=== PATIENT | male | born 1935 | race Caucasian/White ===

== ENCOUNTER 2016-06-19 03:29 | Emergency (ER) | payer MEDICARE ==
--- NOTE | 2016-06-19 03:58 | ERPHSYRPT ---
- History of Present Illness Time Seen by Provider: 06/19/16 03:45 Source: patient Exam Limitations: no limitations Patient Subjective Stated Complaint: FREQUENT FALLS, WITH FALL TONIGHT FROM STANDING POSITION - PT DOES NOT RECALL EVENT - MEDICS FOUND LOW BLOOD SUGAR ON SCENE - PT DENIES PAIN BUT DOES NOT RECALL THE EVENT Triage Nursing Assessment: LIFTED TO CART PER EMS PERSONNEL - RIGHT-SIDED WEAKNESS PER OLD STROKE, OTHERWISE MILD WEAKNESS NOTED PER FUNCTIONING EXTREMITIES. ALERT/ORIENTED X 3 - APPROPRIATE AFFECT. SKIN PWD - NO RASH - ARASIONS ON THE LEFT MEDIAL FOOT ET ECCHYMOSES ON THE RIGHT WRIST WITH SOME SWELLING. RESPS NON-LABORED Physician History: REPORTEDLY PT FELL TONIGHT AND HAD A LOW BLOOD GLUCOSE OF 41, EMS GAVE 1/2 AMP OF D-50 AND NOW IN ER B.S. IS 98. PT DENIES ANY PAIN ANYWHERE. PT ALSO DENIES SHORTNESS OF AIR, VOMITING, HEADACHE, NECK PAIN, BACK PAIN, NEW NUMBNESS OR WEAKNESS. Allergies/Adverse Reactions: No Known Drug Allergies Allergy (Unverified 06/19/16 03:32) Home Medications: Aspirin 325 mg PO DAILY 06/19/16 [History] Insulin Glargine,Hum.rec.anlog [Lantus Solostar] 50 unit SQ BID 06/19/16 [ History] Insulin Lispro [Humalog] 40 unit SQ TID 06/19/16 [History] Liraglutide [Victoza 3-Rancho] 1.8 mg SQ DAILY 06/19/16 [History] Losartan Potassium 100 mg PO DAILY 06/19/16 [History] Metoprolol Tartrate 25 mg [Lopressor 25MG Tab] 25 mg PO BID 06/19/16 [ History] Polyethylene Glycol [Polyox Wsr-301] 1 gm MC DAILY PRN 06/19/16 [History] Rosuvastatin Calcium [Crestor] 40 mg PO HS 06/19/16 [History] Sertraline HCl 50 mg [Zoloft 50 mg Tablet] 50 mg PO BID 06/19/16 [History] Solifenacin Succinate [Vesicare] 10 mg PO DAILY 06/19/16 [History] Tamsulosin HCl 0.4 mg [Flomax 0.4 MG] 0.4 mg PO BID 06/19/16 [History] Hx Tetanus, Diphtheria Vaccination/Date Given: No Hx Influenza Vaccination/Date Given: No Hx Pneumococcal Vaccination/Date Given: No Immunizations Up to Date: Yes - Review of Systems Constitutional: Other (LOW BLOOD GLUCOSE) Musculoskeletal: Fall All Other Systems: Reviewed and Negative - Past Medical History Pertinent Past Medical History: Yes Neurological History: Stroke Cardiac History: High Cholesterol, Hypertension, Other Endocrine Medical History: Diabetes Type II Musculoskeletal History: Arthritis GI Medical History: Gallbladder Disease History: No Pertinent History Psycho-Social History: No Pertinent History Male Reproductive Disorders: No Pertinent History - Past Surgical History Past Surgical History: Yes Cardiac: CABG Gastrointestinal: Cholecystectomy Genitourinary: No Pertinent History Musculoskeletal: No Pertinent History Male Surgical History: No Pertinent History - Social History Smoking Status: Never smoker Exposure to second hand smoke: No Drug Use: none Patient Lives Alone: No - Nursing Vital Signs Nursing Vital Signs: Initial Vital Signs Temperature 97.6 F Temperature Source Oral Pulse Rate 53 Respiratory Rate 14 Blood Pressure [] 111/57 Pain Intensity 0 - Mario Coma Score Best Eye Response (Mario): (4) open spontaneously Best Verbal Response (Catherine): (5) oriented Best Motor Response (Mario): (6) obeys commands Mario Total: 15 - Physical Exam General Appearance: alert Head Injury: no evidence of injury Eye Exam: PERRL/EOMI ENT Exam: airway nml, nml ext.inspection, hearing grossly normal Neck Exam: supple, trachea midline, full range of motion Respiratory/Chest Exam: normal breath sounds, No chest tenderness Cardiovascular Exam: normal heart sounds Gastrointestinal Exam: soft, normal bowel sounds, No tenderness Back Exam: normal inspection Extremity Exam: other (RIGHT HAND IS FISTED; LIMITED ROM OF THE RIGHT UPPER EXTREMITY) Peripheral Pulses: dorsalis-pedis (R): 2+, dorsalis-pedis (L): 2+ Neurologic Exam: alert, cooperative, other (NO TREMORS) Skin Exam: abrasion (1 CM DIAMETER AVULSION OF EPIDERMIS ON PLANTAR ASPECT OF 1ST MPJ OF THE LEFT FOOT; 1 CM DIAMETER VERY SUPERFICIAL ABRASION OF DORSAL ASPECT OF RIGHT WRIST WITH MINIMAL EDEMA OF THE RIGHT WRIST.) SpO2 Interpretation: normal SpO2: 96 Oxygen Delivery: Room Air - Course Nursing assessment & vital signs reviewed: Yes - Radiology Exams Left Foot X-ray Interpretation: Interpreted by me, No Fracture Right Wrist X-ray Interpretation: Interpreted by me, No Fracture Ordered Tests: Active Orders 24 hr Category Date Time Status ACCUCHECK [Accucheck] STAT Care 06/19/16 05:09 Active IV Insertion STAT Care 06/19/16 03:59 Active FOOT (MINIMUM 3 VIEWS) Stat Exams 06/19/16 03:58 Taken WRIST (MIN 3 VIEWS) Stat Exams 06/19/16 03:58 Taken BMP Stat Lab 06/19/16 04:14 Completed CBC W DIFF Stat Lab 06/19/16 04:14 Completed MAGNESIUM Stat Lab 06/19/16 04:14 Completed UA Stat Lab 06/19/16 05:30 Completed Medication Summary Generic Name Dose Route Start Last Admin Trade Name Freq PRN Reason Stop Dose Admin Magnesium Oxide 400 mg 06/19/16 10:00 06/19/16 06:00 Mag-Ox 400 PO 07/19/16 09:59 400 mg BID CHANCE Administration Discontinued Medications Generic Name Dose Route Start Last Admin Trade Name Freq PRN Reason Stop Dose Admin Sodium Chloride 1,000 mls @ 999 mls/hr 06/19/16 03:59 06/19/16 04:08 Sodium Chloride 0.9% 1000 Ml IV 06/19/16 04:59 999 mls/hr .Q1H1M STA Administration Sodium Chloride Confirm 06/19/16 04:03 Sodium Chloride 0.9% 1000 Ml Administered 06/19/16 04:04 Dose 1,000 mls @ ud .ROUTE .STK-MED ONE Potassium Chloride 10 meq 06/19/16 05:52 06/19/16 06:00 Klor Con 10 Meq PO 06/19/16 05:53 10 meq STAT ONE Administration Potassium Chloride Confirm 06/19/16 05:56 Klor Con 10 Meq Administered 06/19/16 05:57 Dose 10 meq PO .STK-MED ONE Lab/Rad Data: Laboratory Result Diagrams 06/19/16 04:14 06/19/16 04:14 Laboratory Results 06/19/16 06/19/16 06/19/16 Range/Units 05:30 04:14 04:14 WBC 8.5 (4.0-10.5) K/mm3 RBC 4.39 (4.1-5.6) M/mm3 Hgb 12.3 L (12.5-18.0) gm/dl Hct 38.3 L (42-50) % MCV 87.2 (78-100) fl MCH 28.0 (26-32) pg MCHC 32.1 (32-36) g/dl RDW 14.3 H (11.5-14.0) % Plt Count 164 (150-450) K/mm3 MPV 9.5 (6-9.5) fl Gran % 82.5 H (36.0-66.0) % Lymphocytes % 10.5 L (24.0-44.0) % Monocytes % 6.7 (0.0-12.0) % Eosinophils % 0.2 (0.00-5.0) % Basophils % 0.1 (0.0-0.4) % Basophils # 0.01 (0-0.4) Sodium 140 (136-145) mEq/L Potassium 3.4 L (3.5-5.1) mEq/L Chloride 105 (98-107) mEq/L Carbon Dioxide 26.7 (21-32) mEq/L Anion Gap 11.7 (5-15) MEQ/L BUN 15 (9-20) mg/dL Creatinine 0.91 (0.55-1.30) mg/dl Estimated GFR > 60 ML/MIN Glucose 81 (70-110) MG/DL Calcium 8.4 L (8.5-10.1) mg/dL Magnesium 1.7 L (1.8-2.4) mg/dL Ur Collection Type CLEAN CATCH Urine Color YELLOW (YELLOW) Urine Appearance CLEAR (CLEAR) Urine pH 5.5 (5-6) Ur Specific [place] 1.020 (1.005-1.025) Urine Protein NEGATIVE (Negative) Urine Glucose (UA) 100 (NEGATIVE) mg/dL Urine Ketones SMALL (NEGATIVE) Urine Nitrite NEGATIVE (NEGATIVE) Urine Bilirubin SMALL (NEGATIVE) Urine Urobilinogen 4 (0-1) mg/dL Urine WBC (Auto) NEGATIVE (NEGATIVE) Urine RBC (Auto) TRACE NON-HEM (0-5) Martell/ul Specimen Received [id number] - Departure Time of Disposition: 06:47 Departure Disposition: Home Clinical Impression: ABRASION TO THE LEFT FOOT, ABRASION TO RIGHT WRIST, HYPOGLYCEMIA, MILD HYPOKALEMIA, MILD HYPOMAGNESEMIA, DM, ARTHRITIS, HTN, HX CVA WITH RIGHT HEMIPARESIS Condition: Fair Critical Care Time: No Referrals: ROBERT CASTANON [Primary Care Provider] - Instructions: Prevent Falls, Hypoglycemia, Abrasion Additional Instructions: FOLLOW UP WITH PRIVATE DOCTOR TOMORROW. NEOSPORIN & BANDAGE TO LEFT FOOT ABRASION DAILY FOR THE NEXT 10 DAYS.
[2016-06-19] MEDS ORDERED: Sodium Chloride 0.9% 1000 ML 1,000 ML IV STA (03:59)
[2016-06-19] MEDS ORDERED: Sodium Chloride 0.9% 1000 ML 1,000 ML ONE (04:03)
[2016-06-19 04:19] LABS: BASOPHIL % 0.1 % (0.0-0.4); Eosinophil % 0.2 % (0.00-5.0); Granulocytes % 82.5 % (36.0-66.0); Lymphocytes % 10.5 % (24.0-44.0); Mean Cell Volume 87.2 fl (78-100); Mean Platelet Volume 9.5 fl (6-9.5); Monocytes % 6.7 % (0.0-12.0); Platelet Count 164 K/mm3 (150-450); Red Blood Count 4.39 M/mm3 (4.1-5.6); Red Cell Distribution Width 14.3 % (11.5-14.0); White Blood Count 8.5 K/mm3 (4.0-10.5)
[2016-06-19 04:34] LABS: ANION GAP 11.7 MEQ/L (5-15); BLOOD UREA NITROGEN 15 mg/dL (9-20); CHLORIDE 105 mEq/L (98-107); Carbon Dioxide 26.7 mEq/L (21-32); Glucose 81 MG/DL (70-110); MAGNESIUM 1.7 mg/dL (1.8-2.4); Potassium 3.4 mEq/L (3.5-5.1); SODIUM 140 mEq/L (136-145)
[2016-06-19 05:42] LABS: Collection Type CLEAN CATCH; Ph 5.5 (5-6)
[2016-06-19 05:43] LABS: COMPLETE URINE MICROSCOPIC? NO
[2016-06-19] MEDS ORDERED: Klor Con 10 MEQ PO ONE ×2 (05:52→05:56)
[2016-06-19] MEDS ORDERED: MAG-OX 400 ONE (05:56)
[2016-06-19] MEDS ORDERED: BACIGUENT PACKET TP ONE (06:55)
[2016-06-19] MEDS ORDERED: BACIGUENT PACKET ONE (06:56)
[2016-06-19 07:32] VITALS: BP 130/49; PULSE 59; O2SAT 97
--- NOTE | 2016-06-19 08:19 | XRAY ---
Indication: Pain following fall. Comparison: None 3 nonweightbearing views of the left foot demonstrates mild osteopenia, first MTP minimal degenerative changes, tiny plantar heel spur, and scattered vascular calcifications. No other bony, articular, or soft tissue abnormalities.
--- NOTE | 2016-06-19 08:21 | XRAY ---
Indication: Pain following fall. Comparison: None 3 views of the right wrist demonstrates osteopenia, old distal radial fracture, radiocarpal degenerative joint space narrowing, and mild first metacarpal multangular degenerative changes. No other bony, articular, or soft tissue abnormalities.
[2016-06-19] MEDS ORDERED: MAG-OX 400 PO SCH (10:00)
== END 2016-06-19 08:03 ==
LOC: ED 03:29
DX: S90.812A Abrasion, left foot, initial encounter (principal); S60.811A Abrasion of right wrist, initial encounter; E16.2 Hypoglycemia, unspecified; E87.6 Hypokalemia; E83.42 Hypomagnesemia; E11.9 Type 2 diabetes mellitus without complications; M19.90 Unspecified osteoarthritis, unspecified site; I10 Essential (primary) hypertension; I69.951 Hemiplegia and hemiparesis following unspecified cerebrovascular disease affecting right dominant side; Z79.84 Long term (current) use of oral hypoglycemic drugs; Z79.4 Long term (current) use of insulin; E78.00 Pure hypercholesterolemia, unspecified
CPT/HCPCS: 36000; 36415; 73110; 73630; 80048; 81002; 82962; 83735; 85025; 87631; 96360; 99284; A9270-GY

== ENCOUNTER 2019-02-22 13:59 | Emergency (ER) | payer MEDICARE ==
--- NOTE | 2019-02-22 14:35 | ERPHSYRPT ---
- History of Present Illness Time Seen by Provider: 02/22/19 14:10 Source: patient, EMS Exam Limitations: no limitations Patient Subjective Stated Complaint: Pt states "I woke up this morning and I started to have left lower back pain that goes down into my left hip, leg, and down to my left knee." Triage Nursing Assessment: Pt presented alert and oriented X 3, skin pwd. Pt able to move all extremeties, pain noted to left hip and leg. Physician History: 83 y/o white male presents with left lower back/buttock pain that radiates down back of leg. no acute injury. patient woke up with it and has worsened during the day. Timing/Duration: today Method of Injury: other (none) Quality: radiating, sharp Back Pain Location: lumbar spine, paraspinous muscles Back Pain Radiation: buttocks Severity of Pain-Max: moderate Severity of Pain-Current: moderate Modifying Factors: Improves With: movement (worsen) Associated Symptoms: lower back pain, muscle spasms Previous symptoms: no prior history Allergies/Adverse Reactions: No Known Drug Allergies Allergy (Verified 02/22/19 14:06) Home Medications: Aspirin 325 mg PO DAILY 06/19/16 [History] Insulin Glargine,Hum.rec.anlog [Lantus Solostar] 50 unit SQ BID 06/19/16 [ History] Insulin Lispro [Humalog] 40 unit SQ TID 06/19/16 [History] Liraglutide [Victoza 3-Rancho] 1.8 mg SQ DAILY 06/19/16 [History] Losartan Potassium 100 mg PO DAILY 06/19/16 [History] Metoprolol Tartrate 25 mg [Lopressor 25MG Tab] 25 mg PO BID 06/19/16 [ History] Polyethylene Glycol [Polyox Wsr-301] 1 gm MC DAILY PRN 06/19/16 [History] Rosuvastatin Calcium [Crestor] 40 mg PO HS 06/19/16 [History] Sertraline HCl 50 mg [Zoloft 50 mg Tablet] 50 mg PO BID 06/19/16 [History] Solifenacin Succinate [Vesicare] 10 mg PO DAILY 06/19/16 [History] Tamsulosin HCl 0.4 mg [Flomax 0.4 MG] 0.4 mg PO BID 06/19/16 [History] Hx Tetanus, Diphtheria Vaccination/Date Given: No Hx Influenza Vaccination/Date Given: Yes Hx Pneumococcal Vaccination/Date Given: No Immunizations Up to Date: Yes - Review of Systems Constitutional: No Symptoms Eyes: No Symptoms Ears, Nose, & Throat: No Symptoms Respiratory: No Symptoms Cardiac: No Symptoms Abdominal/Gastrointestinal: No Symptoms Genitourinary Symptoms: No Symptoms Musculoskeletal: Back Pain (left lower back/buttock) Skin: No Symptoms Neurological: No Symptoms Psychological: No Symptoms Endocrine: No Symptoms Hematologic/Lymphatic: No Symptoms Immunological/Allergic: No Symptoms All Other Systems: Reviewed and Negative - Past Medical History Pertinent Past Medical History: Yes Neurological History: Stroke Cardiac History: High Cholesterol, Hypertension, Other Endocrine Medical History: Diabetes Type II Musculoskeletal History: Arthritis GI Medical History: Gallbladder Disease History: No Pertinent History Psycho-Social History: No Pertinent History Male Reproductive Disorders: No Pertinent History - Past Surgical History Past Surgical History: Yes Cardiac: CABG Gastrointestinal: Cholecystectomy Genitourinary: No Pertinent History Musculoskeletal: No Pertinent History Male Surgical History: No Pertinent History - Social History Smoking Status: Former smoker Exposure to second hand smoke: No Drug Use: none Patient Lives Alone: No - Nursing Vital Signs Nursing Vital Signs: Initial Vital Signs Temperature 98.1 F 02/22/19 14:00 Pulse Rate 68 02/22/19 14:00 Respiratory Rate 18 02/22/19 14:00 Blood Pressure 156/61 02/22/19 14:00 O2 Sat by Pulse Oximetry 99 02/22/19 14:00 Pain Scale Pain Intensity [Left Hip] 9 Pain Intensity 6 - Physical Exam General Appearance: mild distress, alert, anxiety Eye Exam: PERRL/EOMI Ears, Nose, Throat Exam: normal ENT inspection Neck Exam: normal inspection, non-tender, supple, full range of motion Respiratory Exam: No chest tenderness Gastrointestinal Exam: No tenderness Rectal Exam: not done Back Exam: decreased range of motion, muscle spasm (left lower back and buttock) Extremity Exam: normal inspection, normal range of motion, pelvis stable Neurologic Exam: alert, oriented x 3, cooperative, 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 Skin Exam: normal color, warm, dry Lymphatic Exam: No adenopathy SpO2 Interpretation: normal SpO2: 99 O2 Delivery: Room Air - Course Nursing assessment & vital signs reviewed: Yes Ordered Tests: Medication Summary Discontinued Medications Generic Name Dose Route Start Last Admin Trade Name Freq PRN Reason Stop Dose Admin Cyclobenzaprine HCl 10 mg 02/22/19 14:40 02/22/19 14:45 Cyclobenzaprine 10 Mg PO 02/22/19 14:41 10 mg STAT ONE Administration Cyclobenzaprine HCl Confirm 02/22/19 14:43 Cyclobenzaprine 10 Mg Administered 02/22/19 14:44 Dose 10 mg .ROUTE .STK-MED ONE Hydromorphone HCl 1 mg 02/22/19 14:38 02/22/19 14:44 Hydromorphone 1 Mg/Ml Ampule IM 02/22/19 14:39 1 mg STAT ONE Administration Hydromorphone HCl Confirm 02/22/19 14:43 Hydromorphone 1 Mg/Ml Ampule Administered 02/22/19 14:44 Dose 1 mg .ROUTE .STK-MED ONE Methylprednisolone Sodium Succinate 125 mg 02/22/19 14:39 02/22/19 14:44 Solu-Medrol 125 Mg IM 02/22/19 14:40 125 mg STAT ONE Administration Methylprednisolone Sodium Succinate Confirm 02/22/19 14:43 Solu-Medrol 125 Mg Administered 02/22/19 14:44 Dose 125 mg .ROUTE .STK-MED ONE Ondansetron HCl 4 mg 02/22/19 14:38 02/22/19 14:45 Zofran Odt 4 Mg PO 02/22/19 14:39 4 mg STAT ONE Administration Ondansetron HCl Confirm 02/22/19 14:43 Zofran Odt 4 Mg Administered 02/22/19 14:44 Dose 4 mg .ROUTE .STK-MED ONE - Progress Progress: improved Counseled pt/family regarding: diagnosis, need for follow-up - Departure Departure Disposition: Home Clinical Impression: Back pain, Sciatica Condition: Stable Critical Care Time: No Referrals: NALLELY PARISI [Primary Care Provider] - Additional Instructions: take medications as prescribed. follow up with primary doctor for persistent symptoms Prescriptions: Hydrocodone/APAP 5-325 Tab^^^ [[place] 5-325 Tablet^^^] 1 tab PO Q12H PRN PRN #8 tablet MDD 2 PRN Reason: Pain Cyclobenzaprine HCl 10 mg [Cyclobenzaprine 10 MG] 10 mg PO BID #10 tablet Prednisone 10 mg [Deltasone 10 mg] 10 mg PO BID #8 tablet
[2019-02-22] MEDS ORDERED: ZOFRAN ODT 4 MG PO ONE (14:38)
[2019-02-22] MEDS ORDERED: Hydromorphone 1 mg/ml Ampule IM ONE (14:38)
[2019-02-22] MEDS ORDERED: solu-MEDROL 125 MG IM ONE (14:39)
[2019-02-22] MEDS ORDERED: Cyclobenzaprine 10 MG PO ONE (14:40)
[2019-02-22] MEDS ORDERED: solu-MEDROL 125 MG ONE (14:43)
[2019-02-22] MEDS ORDERED: Hydromorphone 1 mg/ml Ampule ONE (14:43)
[2019-02-22] MEDS ORDERED: ZOFRAN ODT 4 MG ONE (14:43)
[2019-02-22] MEDS ORDERED: Cyclobenzaprine 10 MG ONE (14:43)
[2019-02-22 15:47] VITALS: BP 142/70; PULSE 62; O2SAT 97
== END 2019-02-22 15:49 | disposition home or self-care (01) ==
LOC: ED 13:59
DX: M54.42 Lumbago with sciatica, left side (principal); R25.2 Cramp and spasm; Z79.899 Other long term (current) drug therapy; Z79.84 Long term (current) use of oral hypoglycemic drugs; Z79.4 Long term (current) use of insulin; E78.00 Pure hypercholesterolemia, unspecified; I10 Essential (primary) hypertension; E11.9 Type 2 diabetes mellitus without complications
CPT/HCPCS: 96372; 99284; J1170; J2930; Q0162; A9270-GY

== ENCOUNTER 2023-03-28 01:53 | Emergency (ER) | payer MEDICARE ==
--- NOTE | 2023-03-28 02:04 | ERPHSYRPT ---
- History of Present Illness Time Seen by Provider: 03/28/23 02:03 Source: patient Exam Limitations: no limitations Physician History: This is an 87-year-old white male patient who was brought to the emergency department by the operations and maintenance specialist/ambulance service from [facility]. Patient states in the last few days he has had intermittent right buttock to right knee posterior sciatica. He did not suffer any fall or trauma. In the last 24 hours the sharp, shooting pain is more constant. The pain is worse with movement and with lying flat. Patient has a history of prostate issues, hyperlipidemia, hypertension and insulin-dependent diabetes. Patient is merely wanting a steroid injection. Timing/Duration: day(s) (Present for the last few days), intermittent, worse Method of Injury: other (No injury) Quality: sharp, stabbing Back Pain Location: lumbar spine (Lumbar spinal level), paraspinous muscles (Right paraspinous muscles) Back Pain Radiation: buttocks (Right buttock posteriorly), upper legs (Posteriorly to the knee on the right side) Severity of Pain-Max: moderate Modifying Factors: Improves With: movement, other (Worsens with lying flat) Associated Symptoms: denies symptoms, lower back pain, No urinary incontinence, No loss of bowel control, No constipation, No numbness in legs/feet Previous symptoms: same symptoms as today (On the left side), no recent treatment Allergies/Adverse Reactions: No Known Drug Allergies Allergy (Verified 03/28/23 02:18) Home Medications: Aspirin 325 mg PO DAILY 06/19/16 [History] Insulin Glargine,Hum.rec.anlog [Lantus Solostar] 50 unit SQ BID 06/19/16 [History] Insulin Lispro [Humalog] 40 unit SQ TID 06/19/16 [History] Liraglutide [Victoza 3-Rancho] 1.8 mg SQ DAILY 06/19/16 [History] Losartan Potassium 100 mg PO DAILY 06/19/16 [History] Metoprolol Tartrate 25 mg [Lopressor 25MG Tab] 25 mg PO BID 06/19/16 [History] Polyethylene Glycol [Polyox Wsr-301] 1 gm MC DAILY PRN 06/19/16 [History] Rosuvastatin Calcium [Crestor] 40 mg PO HS 06/19/16 [History] Sertraline HCl 50 mg [Zoloft 50 mg Tablet] 50 mg PO BID 06/19/16 [History] Solifenacin Succinate [Vesicare] 10 mg PO DAILY 06/19/16 [History] Tamsulosin HCl 0.4 mg [Flomax 0.4 MG] 0.4 mg PO BID 06/19/16 [History] Hx Tetanus, Diphtheria Vaccination/Date Given: No Hx Influenza Vaccination/Date Given: Yes Hx Pneumococcal Vaccination/Date Given: No Travel Risk - International Travel Have you traveled outside of the country in past 3 weeks: No - Coronavirus Screening Are you exhibiting any of the following symptoms?: No Close contact with a COVID-19 positive Pt in past 14-21 Days: No - Review of Systems Constitutional: No Symptoms Eyes: No Symptoms Ears, Nose, & Throat: No Symptoms Respiratory: No Symptoms Cardiac: No Symptoms Abdominal/Gastrointestinal: No Symptoms Genitourinary Symptoms: No Symptoms, No Incontinence Musculoskeletal: Back Pain, No Fall, No Injury Neurological: No Symptoms Psychological: No Symptoms Endocrine: No Symptoms Hematologic/Lymphatic: No Symptoms Immunological/Allergic: No Symptoms All Other Systems: Reviewed and Negative - Past Medical History Pertinent Past Medical History: Yes Neurological History: Stroke Cardiac History: High Cholesterol, Hypertension, Other Endocrine Medical History: Diabetes Type II Musculoskeletal History: Arthritis GI Medical History: Gallbladder Disease History: No Pertinent History Psycho-Social History: No Pertinent History Male Reproductive Disorders: No Pertinent History - Past Surgical History Past Surgical History: Yes Cardiac: CABG Gastrointestinal: Cholecystectomy Genitourinary: No Pertinent History Musculoskeletal: No Pertinent History Male Surgical History: No Pertinent History - Social History Smoking Status: Former smoker Exposure to second hand smoke: No Drug Use: none Patient Lives Alone: No - Nursing Vital Signs Nursing Vital Signs: Initial Vital Signs Temperature 97.4 F 03/28/23 01:57 Pulse Rate 66 03/28/23 01:57 Respiratory Rate 16 03/28/23 01:57 Blood Pressure 153/58 03/28/23 01:57 O2 Sat by Pulse Oximetry 94 L 03/28/23 01:57 Pain Scale Pain Intensity [Right Back] 0 Pain Intensity 0 - Physical Exam General Appearance: no apparent distress, alert, anxiety, obese Eye Exam: PERRL/EOMI, eyes nml inspection Ears, Nose, Throat Exam: normal ENT inspection, moist mucous membranes Neck Exam: normal inspection, non-tender, supple, full range of motion Respiratory Exam: normal breath sounds, lungs clear, airway intact, No chest tenderness, No respiratory distress Cardiovascular Exam: regular rate/rhythm, normal heart sounds, normal peripheral pulses Gastrointestinal Exam: soft, normal bowel sounds, No tenderness Rectal Exam: not done Back Exam: normal inspection, decreased range of motion, muscle spasm (Right lumbar level tenderness), No vertebral tenderness Extremity Exam: normal inspection, limited range of motion Neurologic Exam: alert, oriented x 3, cooperative, 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, normal mood/affect Skin Exam: normal color, warm, dry Lymphatic Exam: No adenopathy SpO2 Interpretation: normal O2 Delivery: Room Air - Course Nursing assessment & vital signs reviewed: Yes Ordered Tests: Active Orders 24 hr Category Date Time Status ABDOMEN AND PELVIS W/0 CONTRAS [CT] Stat Exams 03/28/23 02:24 Ordered Medication Summary Discontinued Medications Generic Name Dose Route Start Last Admin Trade Name Freq PRN Reason Stop Dose Admin Methylprednisolone Sodium 0 mg 03/28/23 02:25 Succinate 125 mg/ Sterile IM 03/28/23 02:26 Water 2 ml STAT ONE Methylprednisolone Sodium Succinate Confirm 03/28/23 02:37 Methylprednis Sod Succ 125 Mg/2 Ml Vial Administered 03/28/23 02:38 Dose 125 mg .ROUTE .STK-MED ONE Orphenadrine Citrate 30 mg 03/28/23 02:25 Orphenadrine Citrate 60 Mg/2 Ml Vial IM 03/28/23 02:26 STAT ONE Orphenadrine Citrate Confirm 03/28/23 02:37 Orphenadrine Citrate 60 Mg/2 Ml Vial Administered 03/28/23 02:38 Dose 60 mg .ROUTE .STK-MED ONE Sterile Water Confirm 03/28/23 02:37 Water For Injection,Sterile 10 Ml Vial Administered 03/28/23 02:38 Dose 10 ml IJ .STK-MED ONE - Progress Progress: improved, pain not gone completely, re-examined Progress Note: 03/28/23 02:45 This patient's medical issue is 1 of low complexity. Level of complexity and the workup performed is based on review of the patient's past medical history, review of the patient's medication list, review of patient's drug allergy list, history of present illness and physical findings on examination. The workup in this patient included CT scan of the abdomen pelvis without contrast to evaluate both the lumbar spine and the aorta. Patient refuses the test. He states he cannot lie flat. He stated that even with the medication to help relieve his pain, he did not want to attempt the CAT scan of the abdomen pelvis without contrast. He will sign refusal of treatment. Counseled pt/family regarding: diagnosis, need for follow-up Medical Desision Making - Diagnostic Testing Diagnostic test were ordered, analyzed, and reviewed by me: No - Risk of complications The pt has a mod risk of morbidity or mortality based on: Need for prescription drug management - Departure Departure Disposition: Extended Care Facility Clinical Impression: Sciatica, right side Condition: Stable Critical Care Time: No Additional Instructions: Take your medication as prescribed. Monitor your blood sugar closely while taki ng the prednisone. Follow-up with your provider for further evaluation management Prescriptions: Cyclobenzaprine HCl 10 mg [Cyclobenzaprine 10 MG] 10 mg PO TID #10 tablet Prednisone 10 mg [Deltasone 10 mg] 10 mg PO TID #12 tablet
[2023-03-28 02:18] VITALS: RESP 16; TEMP 97.4
[2023-03-28] MEDS ORDERED: solu-MEDROL 125 MG, Sterile H2O 10 ml 2 ML IM ONE ×2 (02:25)
[2023-03-28] MEDS ORDERED: Norflex 60 MG/2 ML IM ONE (02:25)
[2023-03-28] MEDS ORDERED: solu-MEDROL ONE (02:37)
[2023-03-28] MEDS ORDERED: Norflex 60 MG/2 ML ONE (02:37)
[2023-03-28] MEDS ORDERED: Sterile H2O 10 ml IJ ONE (02:37)
[2023-03-28 04:32] VITALS: BP 142/74; PULSE 57; O2SAT 97
== END 2023-03-28 04:25 | disposition home or self-care (01) ==
LOC: ED 01:53
DX: M54.31 Sciatica, right side (principal); E78.5 Hyperlipidemia, unspecified; I10 Essential (primary) hypertension; E11.9 Type 2 diabetes mellitus without complications; Z79.52 Long term (current) use of systemic steroids; Z79.4 Long term (current) use of insulin; Z79.85 Long-term (current) use of injectable non-insulin antidiabetic drugs; Z79.899 Other long term (current) drug therapy
CPT/HCPCS: 96372; 99283; J2360; J2930

== ENCOUNTER 2023-08-22 17:11 | Observation (INO) | payer MEDICARE ==
[2023-08-22] MEDS ORDERED: Lasix 20 MG/2 ML ONE (19:09)
[2023-08-22 19:10] LABS: Hematocrit 36.5 % (42-50); Hemoglobin 11.9 g/dL (12.5-18.0); Mean Cell Volume 87.5 fL (78-100); Mean Corpuscular Hemoglobin 28.5 pg (26-32); Mean Corpuscular Hgb Concent. 32.6 g/dL (32-36); Mean Platelet Volume 9.1 fL (7.5-11.0); Platelet Count 159 x10^3/uL (150-450); Red Blood Count 4.17 x10^6/uL (4.1-5.6); Red Cell Distribution Width 13.6 % (11.5-14.0); White Blood Count 8.1 x10^3/uL (4.0-10.5)
[2023-08-22] MEDS: Lasix 20 MG/2 ML IV ONE (19:18)
[2023-08-22 19:24] LABS: ALBUMIN 3.7 g/dL (3.5-5.0); BILIRUBIN,TOTAL 0.9 mg/dL (0.2-1.3); Calcium 9.1 mg/dL (8.4-10.2); Creatinine 1 0.77 mg/dL (0.66-1.25); EST GLOMERULAR FILTRATION RATE 87.7 ML/MIN; Potassium 4.1 mmol/L (3.5-5.1); Total Protein 6.9 g/dL (6.3-8.2)
[2023-08-22] MEDS ORDERED: MORPHINE SULFATE 4 MG INJ ONE (19:24)
[2023-08-22] MEDS: MORPHINE SULFATE 4 MG INJ IV ONE (19:25)
[2023-08-22] MEDS ORDERED: D50W 50 ml Abboject IV ONE (19:39)
[2023-08-22] MEDS: D50W 50 ml Abboject IV ONE (19:39)
--- NOTE | 2023-08-22 22:21 | ERPHSYRPT ---
- History of Present Illness Time Seen by Provider: 08/22/23 20:45 Source: patient Exam Limitations: clinical condition Patient Subjective Stated Complaint: pt states swelling to his rt foot Triage Nursing Assessment: pt came into the er via ambulance; pt was transferred to cot per EMS staff; c/o swelling; 2+ pitting edema to BLE, greater in the RLE; BLE cool to the touch; weak pedal pulses lidia; skin pale, dry, warm; no respiratory distress present; vitals wnl patient is complaining of bilateral leg pain and his sciatica acting up Severity: mild Modifying Factors: Improves With: immobilization Associated Symptoms: denies symptoms Allergies/Adverse Reactions: No Known Drug Allergies Allergy (Verified 08/22/23 17:13) Home Medications: Metoprolol Tartrate 25 mg [Lopressor 25MG Tab] 25 mg PO BID 06/19/16 [History] Polyethylene Glycol [Polyox Wsr-301] 17 gm PO DAILY PRN 06/19/16 [History] Rosuvastatin Calcium [Crestor] 20 mg PO HS 06/19/16 [History] Sertraline HCl 50 mg [Zoloft 50 mg Tablet] 50 mg PO DAILY 06/19/16 [History] Acetaminophen 325 mg [Tylenol 325 mg] 650 mg PO Q6H PRN PRN 03/28/23 [History] Aspirin EC 81 mg [Ecotrin 81 mg] 81 mg PO DAILY 03/28/23 [History] Diclofenac Sodium [Diclofono] 2 gm TP QID 03/28/23 [History] Finasteride 5 mg [Proscar 5 MG] 5 mg PO DAILY 03/28/23 [History] Hydrocortisone 2.5% 30 gm [Anusol-Hc 2.5% Cream 30 gm] 1 gm TOP QID PRN 03/28/23 [History] Insulin Aspart [NovoLOG Insulin] 10 unit SQ AC 03/28/23 [History] Insulin Glargine [Lantus Insulin] 20 unit SQ DAILY 03/28/23 [History] Liraglutide [Victoza 2-Rancho] 1.8 mg SQ DAILY 03/28/23 [History] Prevagen 1 tab PO DAILY 03/28/23 [History] Tolterodine Tartrate [Tolterodine Tartrate ER] 2 mg PO BID 03/28/23 [History] Cholecalciferol (Vitamin D3) [Vitamin D] 1 tab PO DAILY 08/22/23 [History] Fluticasone Propionate [Flonase NASAL] 1 spray NS BID 08/22/23 [History] Loratadine 10 mg [Claritin 10 mg] 10 mg PO DAILY 08/22/23 [History] Hx Tetanus, Diphtheria Vaccination/Date Given: No Hx Influenza Vaccination/Date Given: Yes Hx Pneumococcal Vaccination/Date Given: No Immunizations Up to Date: No Travel Risk - International Travel Have you traveled outside of the country in past 3 weeks: No - Emerging Infectious Disease Are you exhibiting symptoms associated with any current EIDs: No - Review of Systems Eyes: No Symptoms Ears, Nose, & Throat: No Symptoms Respiratory: No Symptoms Cardiac: No Symptoms Abdominal/Gastrointestinal: No Symptoms Genitourinary Symptoms: No Symptoms Musculoskeletal: No Symptoms Skin: No Symptoms Neurological: No Symptoms Psychological: No Symptoms Endocrine: No Symptoms - Past Medical History Pertinent Past Medical History: Yes Neurological History: Dementia, Stroke ENT History: No Pertinent History Cardiac History: Congestive Heart Failure, High Cholesterol, Hypertension, Peripheral Vascular Disease, Other Respiratory History: No Pertinent History Endocrine Medical History: Diabetes Type II Musculoskeletal History: Arthritis GI Medical History: Gallbladder Disease History: No Pertinent History Psycho-Social History: No Pertinent History Male Reproductive Disorders: No Pertinent History - Past Surgical History Past Surgical History: Yes Cardiac: CABG Gastrointestinal: Cholecystectomy Genitourinary: No Pertinent History Musculoskeletal: No Pertinent History Male Surgical History: No Pertinent History Other Surgical History: 4 vessel cabg - Social History Smoking Status: Former smoker Exposure to second hand smoke: No Drug Use: none Patient Lives Alone: No - Social Determinants of Health Will the patient participate in the screening: Yes Do you worry about a steady place to live?: No Do you have any problems with any of the following?: No known problems In the past 12 months,have you had to go without utilities?: No Transportation Issues: No Has anyone in your support network made you feel unsafe?: No Have you or anyone in your house had to go without enough: No - Nursing Vital Signs Nursing Vital Signs: Initial Vital Signs Temperature 98.6 F 08/22/23 17:12 Pulse Rate 65 08/22/23 17:12 Respiratory Rate 18 08/22/23 17:12 Blood Pressure 123/54 08/22/23 17:12 O2 Sat by Pulse Oximetry 95 08/22/23 17:12 Pain Scale Pain Intensity 0 - Physical Exam General Appearance: no apparent distress Eye Exam: PERRL/EOMI Ears, Nose, Throat Exam: normal ENT inspection Neck Exam: normal inspection Respiratory Exam: crackles/rales Cardiovascular Exam: regular rate/rhythm Gastrointestinal/Abdomen Exam: other (ventral hernia noted with bowerl sounds) Extremity Exam: pedal edema (patient has bilateral pedal edema) Neurologic Exam: alert, oriented x 3 Skin Exam: normal color SpO2: 94 Ordered Tests: Active Orders 24 hr Category Date Time Status VENOUS BILATERAL EXTREMITY [US] Stat Exams 08/22/23 18:54 Taken CBC Stat Lab 08/22/23 19:05 Completed CMP Stat Lab 08/22/23 19:05 Completed POCT GLUCOSE Stat Lab 08/22/23 19:37 Completed POCT GLUCOSE Stat Lab 08/22/23 20:10 Completed POCT GLUCOSE Stat Lab 08/22/23 21:08 Completed Transfer Order Routine Transfer 08/22/23 Ordered Medication Summary Generic Name Dose Route Start Last Admin Trade Name Freq PRN Reason Stop Dose Admin Furosemide 20 mg 08/23/23 18:54 08/22/23 19:18 Furosemide 20 Mg/Vial IV 08/23/23 18:55 20 mg ONCE ONE Administration Discontinued Medications Generic Name Dose Route Start Last Admin Trade Name Freq PRN Reason Stop Dose Admin Dextrose 50 ml 08/22/23 19:38 08/22/23 19:39 Dextrose 50%-Water 50 Ml Abboject IV 08/22/23 19:39 50 ml STAT ONE Administration Dextrose Confirm 08/22/23 19:39 Dextrose 50%-Water 50 Ml Abboject Administered 08/22/23 19:40 Dose 50 ml IV .STK-MED ONE Furosemide Confirm 08/22/23 19:09 Furosemide 20 Mg/Vial Administered 08/22/23 19:10 Dose 20 mg .ROUTE .STK-MED ONE Morphine Sulfate 4 mg 08/22/23 19:23 08/22/23 19:25 Morphine Sulfate 4 Mg/Ml Injection IV 08/22/23 19:24 4 mg STAT ONE Administration Morphine Sulfate Confirm 08/22/23 19:24 Morphine Sulfate 4 Mg/Ml Injection Administered 08/22/23 19:25 Dose 4 mg .ROUTE .[facility]-MED ONE Lab/Rad Data: Laboratory Result Diagrams 08/22/23 19:05 08/22/23 19:05 Laboratory Results 08/22/23 08/22/23 08/22/23 Range/Units 21:08 20:10 19:37 WBC (4.0-10.5) x10^3/uL RBC (4.1-5.6) x10^6/uL Hgb (12.5-18.0) g/dL Hct (42-50) % MCV (78-100) fL MCH (26-32) pg MCHC (32-36) g/dL RDW (11.5-14.0) % Plt Count (150-450) x10^3/uL MPV (7.5-11.0) fL Sodium (135-145) mmol/L Potassium (3.5-5.1) mmol/L Chloride (98-107) mmol/L Carbon Dioxide (22-30) mmol/L Anion Gap (5-15) MEQ/L BUN (9-20) mg/dL Creatinine (0.66-1.25) mg/dL Estimated GFR ML/MIN Glucose (74-106) mg/dL POC Glucometer 76 114 H 41 L* (50 to 500) mg/dL Calcium (8.4-10.2) mg/dL Total Bilirubin (0.2-1.3) mg/dL AST (17-59) U/L ALT (0-50) U/L Alkaline Phosphatase (38-126) U/L Serum Total Protein (6.3-8.2) g/dL Albumin (3.5-5.0) g/dL 08/22/23 08/22/23 Range/Units 19:05 19:05 WBC 8.1 (4.0-10.5) x10^3/uL RBC 4.17 (4.1-5.6) x10^6/uL Hgb 11.9 L (12.5-18.0) g/dL Hct 36.5 L (42-50) % MCV 87.5 (78-100) fL MCH 28.5 (26-32) pg MCHC 32.6 (32-36) g/dL RDW 13.6 (11.5-14.0) % Plt Count 159 (150-450) x10^3/uL MPV 9.1 (7.5-11.0) fL Sodium 139 (135-145) mmol/L Potassium 4.1 (3.5-5.1) mmol/L Chloride 108 H (98-107) mmol/L Carbon Dioxide 25 (22-30) mmol/L Anion Gap 10.0 (5-15) MEQ/L BUN 24 H (9-20) mg/dL Creatinine 0.77 (0.66-1.25) mg/dL Estimated GFR 87.7 ML/MIN Glucose 37 L* (74-106) mg/dL POC Glucometer (50 to 500) mg/dL Calcium 9.1 (8.4-10.2) mg/dL Total Bilirubin 0.90 (0.2-1.3) mg/dL AST 39 (17-59) U/L ALT 19 (0-50) U/L Alkaline Phosphatase 75 (38-126) U/L Serum Total Protein 6.9 (6.3-8.2) g/dL Albumin 3.7 (3.5-5.0) g/dL - Progress Progress: improved Progress Note: patient was evaluated for his edema with a venous Doppler bilaterally which revealed no acute findings, his lab evaluation revealed a blood sugar of 37. Patient was given an amp of D50, he was then monitored sugar improved to 114. Then decreased to 74. At first he states that the care home gave him his medication, he then informed his niece that he has been given himself his own medication and not been monitoring his diet or the amount of medication that he has been giving himself. Was informed of the need for admission for further evaluation and treatment of his hyperglycemia. I spoke to the hospitalist Dr. Campuzano he was updated with patient's lab results and current venous Doppler results. He will admit the patient for observation 08/22/23 22:21 Discussed with : Other (manisha) Will see patient in: hospital (observation) Counseled pt/family regarding: lab results, need for follow-up Medical Desision Making - Discussion of managment Care discussed with:: hospitalist Reviewed:: Need for additional workup Agreed on:: decision to admit, place in obs - Departure Departure Disposition: Observation Clinical Impression: Sciatica, Hypoglycemia Condition: Stable Critical Care Time: Yes Critical Care Time(excluding separately billable procedures): Critical 30-74 mins Referrals: KELLEY DILLARD MD [Primary Care Provider] - Follow up/PCP as directed
--- NOTE | 2023-08-23 00:37 | PCM.HP ---
History of Present Illness - Chief Complaint Chief Complaint: hypoglycemia Date: 08/22/23 History of Present Illness: Mr. RICH is a 87 year old male with a past medical history significant for hypertension, diabetes, and chronic LE edema who came to the hospital from his facility with complaints of swelling and was found to have a low blood sugar of 37 on lab work. He reports that he gives his own insulin dose but got caught up and forgot to eat something, as well as not having anything good to eat from the facility. He was given one amp d50 with initial improvement to 115, but it then dropped again to 74. He was given Lasix 20mg for his LE edema and has been r ecommended for admission. No fever/chills. No chest pain or shortness of breath. His family tends to bring him food/drinks to maintain his appetite/blood sugars. He states that he normally carries glucose pills with him but did not have them today. - Review of Systems Constitutional: No Fever, No Chills, No Fatigue Eyes: No Vision Changes Ears, Nose, & Throat: No Nose Discharge, No Sinus Drainage Respiratory: No Cough, No Orthopnea, No Short Of Breath Cardiac: Edema, No Chest Pain, No Palpitations Abdominal/Gastrointestinal: No Abdominal Pain, No Nausea, No Vomiting, No Diarrhea Genitourinary Symptoms: No Dysuria, No Frequency, No Hematuria Musculoskeletal: No Arthralgias, No Back Pain Skin: No Cellulitis, No Rash Neurological: No Focal Weakness, No Gait Changes, No Headache Psychological: No Suicidal Ideations Endocrine: No Polyuria, No Polydipsia Hematologic/Lymphatic: No Easy Bleeding Medications & Allergies Home Medications: Home Medication List Metoprolol Tartrate 25 mg [Lopressor 25MG Tab] 25 mg PO BID 06/19/16 [History Confirmed 08/22/23] Polyethylene Glycol [Polyox Wsr-301] 17 gm PO DAILY PRN 06/19/16 [History Confirmed 08/22/23] Rosuvastatin Calcium [Crestor] 20 mg PO HS 06/19/16 [History Confirmed 08/22/23] Sertraline HCl 50 mg [Zoloft 50 mg Tablet] 50 mg PO DAILY 06/19/16 [History Confirmed 08/22/23] Acetaminophen 325 mg [Tylenol 325 mg] 650 mg PO Q6H PRN PRN 03/28/23 [History Confirmed 08/22/23] Aspirin EC 81 mg [Ecotrin 81 mg] 81 mg PO DAILY 03/28/23 [History Confirmed 08/22/23] Diclofenac Sodium [Diclofono] 2 gm TP QID 03/28/23 [History Confirmed 08/22/23] Finasteride 5 mg [Proscar 5 MG] 5 mg PO DAILY 03/28/23 [History Confirmed 08/22/23] Hydrocortisone 2.5% 30 gm [Anusol-Hc 2.5% Cream 30 gm] 1 gm TOP QID PRN 03/28/23 [History Confirmed 08/22/23] Insulin Aspart [NovoLOG Insulin] 10 unit SQ AC 03/28/23 [History Confirmed 08/22/23] Insulin Glargine [Lantus Insulin] 20 unit SQ DAILY 03/28/23 [History Confirmed 08/22/23] Liraglutide [Victoza 2-Rancho] 1.8 mg SQ DAILY 03/28/23 [History Confirmed 08/22/23] Prevagen 1 tab PO DAILY 03/28/23 [History Confirmed 08/22/23] Tolterodine Tartrate [Tolterodine Tartrate ER] 2 mg PO BID 03/28/23 [History Confirmed 08/22/23] Cholecalciferol (Vitamin D3) [Vitamin D] 1 tab PO DAILY 08/22/23 [History Confirmed 08/22/23] Fluticasone Propionate [Flonase NASAL] 1 spray NS BID 08/22/23 [History Confirmed 08/22/23] Loratadine 10 mg [Claritin 10 mg] 10 mg PO DAILY 08/22/23 [History Confirmed 08/22/23] Allergies/Adverse Reactions: Allergies Allergy/AdvReac Type Severity Reaction Status Date / Time Penicillins Allergy Mild Rash Verified 08/22/23 23:53 - Past Medical History Past Medical History: Yes Neurological History: Stroke ENT History: No Pertinent History Cardiac History: Congestive Heart Failure, High Cholesterol, Hypertension, Peripheral Vascular Disease, Other Respiratory History: No Pertinent History Endocrine Medical History: Diabetes Type II Musculoskelatal History: Arthritis GI Medical History: Gallbladder Disease History: No Pertinent History Pyscho-Social History: No Pertinent History Male Reproductive Disorders: No Pertinent History - Past Surgical History Past Surgical History: Yes Neuro Surgical History: No Pertinent History Cardiac History: CABG Respiratory Surgery: No Pertinent History GI Surgical History: Cholecystectomy Genitourinary Surgical Hx: No Pertinent History Musculskeletal Surgical Hx: No Pertinent History Male Surgical History: No Pertinent History Other Surgical History: 4 vessel cabg - Social History Smoking Status: Never smoker Exposure to second hand smoke: No Alcohol: None Drug Use: none - Social Determinants of Health Will the patient participate in the screening: Yes Do you worry about a steady place to live?: No Do you have any problems with any of the following?: No known problems In the past 12 months,have you had to go without utilities?: No Have you or anyone in your house had to go without enough: No Transportation Issues: No Has anyone in your support network made you feel unsafe?: No Does the patient want assistance with any of the above?: No - Physical Exam Vital Signs: Vital Signs - 24 hr Temp Pulse Resp BP BP Pulse Ox 08/22/23 23:14 97.9 F 81 16 119/73 97 08/22/23 22:25 94 L 08/22/23 22:01 78 127/50 94 L 08/22/23 21:31 80 121/64 94 L 08/22/23 21:01 82 133/53 96 08/22/23 20:30 80 133/42 99 08/22/23 20:01 70 120/41 96 08/22/23 19:31 70 123/36 97 08/22/23 19:01 90 127/35 95 08/22/23 18:30 89 134/52 95 08/22/23 18:01 62 111/36 96 08/22/23 17:30 65 124/42 95 08/22/23 17:12 98.6 F 65 18 123/54 95 General Appearance: no apparent distress Neurologic Exam: alert, oriented x 3 Ears, Nose, Throat Exam: dry mucous membranes Neck Exam: supple Respiratory Exam: No respiratory distress Cardiovascular Exam: regular rate/rhythm Gastrointestinal/Abdomen Exam: soft Extremity Exam: No pedal edema, No swelling Skin Exam: No rash Results - Labs Lab/Micro Results: Lab Results-Last 24 Hours 08/22/23 08/22/23 08/22/23 Range/Units 19:05 19:05 19:37 WBC 8.1 (4.0-10.5) x10^3/uL RBC 4.17 (4.1-5.6) x10^6/uL Hgb 11.9 L (12.5-18.0) g/dL Hct 36.5 L (42-50) % MCV 87.5 (78-100) fL MCH 28.5 (26-32) pg MCHC 32.6 (32-36) g/dL RDW 13.6 (11.5-14.0) % Plt Count 159 (150-450) x10^3/uL MPV 9.1 (7.5-11.0) fL Sodium 139 (135-145) mmol/L Potassium 4.1 (3.5-5.1) mmol/L Chloride 108 H (98-107) mmol/L Carbon Dioxide 25 (22-30) mmol/L Anion Gap 10.0 (5-15) MEQ/L BUN 24 H (9-20) mg/dL Creatinine 0.77 (0.66-1.25) mg/dL Estimated GFR 87.7 ML/MIN Glucose 37 L* (74-106) mg/dL POC Glucometer 41 L* (50 to 500) mg/dL Calcium 9.1 (8.4-10.2) mg/dL Total Bilirubin 0.90 (0.2-1.3) mg/dL AST 39 (17-59) U/L ALT 19 (0-50) U/L Alkaline Phosphatase 75 (38-126) U/L Serum Total Protein 6.9 (6.3-8.2) g/dL Albumin 3.7 (3.5-5.0) g/dL 08/22/23 08/22/23 08/23/23 Range/Units 20:10 21:08 00:10 WBC (4.0-10.5) x10^3/uL RBC (4.1-5.6) x10^6/uL Hgb (12.5-18.0) g/dL Hct (42-50) % MCV (78-100) fL MCH (26-32) pg MCHC (32-36) g/dL RDW (11.5-14.0) % Plt Count (150-450) x10^3/uL MPV (7.5-11.0) fL Sodium (135-145) mmol/L Potassium (3.5-5.1) mmol/L Chloride (98-107) mmol/L Carbon Dioxide (22-30) mmol/L Anion Gap (5-15) MEQ/L BUN (9-20) mg/dL Creatinine (0.66-1.25) mg/dL Estimated GFR ML/MIN Glucose (74-106) mg/dL POC Glucometer 114 H 76 124 H (50 to 500) mg/dL Calcium (8.4-10.2) mg/dL Total Bilirubin (0.2-1.3) mg/dL AST (17-59) U/L ALT (0-50) U/L Alkaline Phosphatase (38-126) U/L Serum Total Protein (6.3-8.2) g/dL Albumin (3.5-5.0) g/dL - Radiology Impressions Radiology Exams & Impressions: Radiology Procedures Category Date Time Status VENOUS BILATERAL EXTREMITY [US] Stat Exams 08/22/23 18:54 Taken Assessment/Plan (1) Lymphedema Current Visit: Yes Status: Acute Assessment & Plan: Likely chronic, doubt nephrotic syndrome 1. Check UPC 2. Diuretics prn 3. Check daily weights 4. Follow I/Os 5. Watch electrolytes, kidney function closely Code(s): I89.0 - LYMPHEDEMA, NOT ELSEWHERE CLASSIFIED (2) Diabetes Current Visit: Yes Status: Acute Assessment & Plan: Sugars under relatively good control but prefer slightly high rather than episodes of hypoglycemia Code(s): E11.9 - TYPE 2 DIABETES MELLITUS WITHOUT COMPLICATIONS (3) Essential (primary) hypertension Current Visit: Yes Status: Acute Assessment & Plan: Blood pressure under reasonable control 1. Continue bp meds 2. Low Na diet 3. Monitor blood pressure readings Code(s): I10 - ESSENTIAL (PRIMARY) HYPERTENSION (4) Hypoglycemia Current Visit: Yes Status: Acute Assessment & Plan: Likely from iatrogenic insulin with poor PO intake 1. Hold insulin 2. Encourage PO intake 3. Monitor FSBS q3hr until stable, then qAC/HS Code(s): E16.2 - HYPOGLYCEMIA, UNSPECIFIED Telemedicine Encounter - Telemedicine Encounter Telemedicine Encounter: The entirety of this encounter was performed via Telemedicine"
[2023-08-23] MEDS ORDERED: TYLENOL 325 MG PO PRN (00:46)
[2023-08-23] MEDS ORDERED: Docusate Sodium 100 MG PO PRN (00:46)
[2023-08-23 06:06] LABS: ALBUMIN 3.4 g/dL (3.5-5.0); ANION GAP 8.3 MEQ/L (5-15); BILIRUBIN,TOTAL 0.8 mg/dL (0.2-1.3); Creatinine 1 0.85 mg/dL (0.66-1.25); EST GLOMERULAR FILTRATION RATE 85.2 ML/MIN; Potassium 4.6 mmol/L (3.5-5.1); Total Protein 6.2 g/dL (6.3-8.2)
--- NOTE | 2023-08-23 08:47 | XRAY ---
Indication: Bilateral leg swelling. Two-dimensional sonogram and color Doppler imaging major venous vessels left and right leg performed. Comparison: None No thrombus seen in the examined deep venous vessels left and right leg including greater saphenous vein. Veins demonstrate normal compressibility. Venous waveforms are normal with and without augmentation. Impression: Left and right legs negative for DVT. Comment: Preliminary report was given.
[2023-08-23] MEDS ORDERED: NON-FORMULARY ITEM (Tolterodine Tartrate [Tolterodine Tartrate Er] 2 MG Cap.Er.24h) PO SCH (10:00)
--- NOTE | 2023-08-23 10:56 | PCM.NOTE ---
Date and Time: 08/23/23 1056 Subjective Assessment: 08/23/23 Mr. RICH is a 87 year old male with a past medical history significant for hypertension, diabetes, OA, chronic sciatic nerve pain, and chronic LE edema. Lives at an ECF/ assisted living. Plan is for pt to be transferred to a skilled nursing at d/c. He came to the hospital on 08/22/23 from his facility with complaints of BLLE swelling and was found to have a low blood sugar of 37 on lab work. He reports that he gives his own insulin dose but got caught up and forgot to eat something, as well as not having anything good to eat from the facility. He was given one amp d50 with initial improvement to 115, but it then dropped again to 74. He was given Lasix 20mg for his LE edema and recommended for admission. No fever/chills. No chest pain or shortness of breath. His family tends to bring him food/drinks to maintain his appetite/blood sugars. He states that he normally carries glucose pills with him but did not have them last night. Today he c/o Left femur pain and was unable to get up with PT. No concerning findings seen on XR. He is also c/o sciatic pain and gabapentin started. Glucose has been stable since admission as pt has been eating well. He has a lesion on right foot 2nd toe and it may be necrotic. Will have podiatry evaluate. He also appears to have cellulitis of BLLE, Clindamycin started. BLLE venous duplex negative for DVT. Will start TEDS, SCDS, and leg elevation to reduce edema. Pt denies CP, SOB, abd. pain, N/V/D. - Review of Systems Constitutional: Weakness, No Fever, No Chills Eyes: No Symptoms Ears, Nose, & Throat: No Symptoms Respiratory: No Cough, No Short Of Breath Cardiac: No Chest Pain, No Edema, No Syncope Abdominal/Gastrointestinal: No Abdominal Pain, No Nausea, No Vomiting, No Diarrhea Genitourinary Symptoms: No Dysuria Musculoskeletal: No Back Pain, No Neck Pain Skin: Cellulitis (BLLE), Skin Lesions (right foot, tip of 2nd toe), No Rash Neurological: No Dizziness, No Focal Weakness, No Sensory Changes Psychological: No Symptoms Endocrine: No Symptoms Hematologic/Lymphatic: No Symptoms Immunological/Allergic: No Symptoms Objective Exam General Appearance: no apparent distress, alert, obese Neurologic Exam: alert, oriented x 3, cooperative, normal mood/affect, nml cerebellar function, sensation nml, No motor deficits Skin Exam: normal color, warm, dry Eye Exam: PERRL, EOMI, eyes nml inspection Ears, Nose, Throat Exam: normal ENT inspection, pharynx normal, moist mucous membranes Neck Exam: normal inspection, non-tender, supple, full range of motion Respiratory Exam: normal breath sounds, lungs clear, No respiratory distress Cardiovascular Exam: regular rate/rhythm, normal heart sounds, edema (BLLE) Gastrointestinal/Abdomen Exam: soft, No tenderness, No mass Extremity Exam: normal inspection, normal range of motion, inflammation (BLLE), limited range of motion (left leg), swelling (Appears chronic BLLE) Back Exam: normal inspection, normal range of motion, No CVA tenderness, No vertebral tenderness Male Genitalia Exam: deferred Rectal Exam: deferred Objective Data Vital Signs: Vital Signs - 24 hr Temp Pulse Resp BP BP Pulse Ox 08/23/23 07:25 98.1 F 71 16 150/65 93 L 08/23/23 04:00 98.0 F 73 22 127/58 98 08/22/23 23:14 97.9 F 81 16 119/73 97 08/22/23 22:25 94 L 08/22/23 22:01 78 127/50 94 L 08/22/23 21:31 80 121/64 94 L 08/22/23 21:01 82 133/53 96 08/22/23 20:30 80 133/42 99 08/22/23 20:01 70 120/41 96 08/22/23 19:31 70 123/36 97 08/22/23 19:01 90 127/35 95 08/22/23 18:30 89 134/52 95 08/22/23 18:01 62 111/36 96 08/22/23 17:30 65 124/42 95 08/22/23 17:12 98.6 F 65 18 123/54 95 Pain Assessment - Last Documented Pain Intensity 0 Pain Scale Used 0-10 Pain Scale Intake and Output: Intake & Output 08/20/23 08/21/23 08/22/23 08/23/23 11:59 11:59 11:59 11:59 Intake Total 120 Output Total 450 Balance -330 Weight 104.326 kg Lab Results: Lab Results-Last 24 Hours 08/22/23 08/22/23 08/22/23 Range/Units 19:05 19:05 19:37 WBC 8.1 (4.0-10.5) x10^3/uL RBC 4.17 (4.1-5.6) x10^6/uL Hgb 11.9 L (12.5-18.0) g/dL Hct 36.5 L (42-50) % MCV 87.5 (78-100) fL MCH 28.5 (26-32) pg MCHC 32.6 (32-36) g/dL RDW 13.6 (11.5-14.0) % Plt Count 159 (150-450) x10^3/uL MPV 9.1 (7.5-11.0) fL Sodium 139 (135-145) mmol/L Potassium 4.1 (3.5-5.1) mmol/L Chloride 108 H (98-107) mmol/L Carbon Dioxide 25 (22-30) mmol/L Anion Gap 10.0 (5-15) MEQ/L BUN 24 H (9-20) mg/dL Creatinine 0.77 (0.66-1.25) mg/dL Estimated GFR 87.7 ML/MIN Glucose 37 L* (74-106) mg/dL POC Glucometer 41 L* (50 to 500) mg/dL Calcium 9.1 (8.4-10.2) mg/dL Total Bilirubin 0.90 (0.2-1.3) mg/dL AST 39 (17-59) U/L ALT 19 (0-50) U/L Alkaline Phosphatase 75 (38-126) U/L Serum Total Protein 6.9 (6.3-8.2) g/dL Albumin 3.7 (3.5-5.0) g/dL 08/22/23 08/22/23 08/23/23 Range/Units 20:10 21:08 00:10 WBC (4.0-10.5) x10^3/uL RBC (4.1-5.6) x10^6/uL Hgb (12.5-18.0) g/dL Hct (42-50) % MCV (78-100) fL MCH (26-32) pg MCHC (32-36) g/dL RDW (11.5-14.0) % Plt Count (150-450) x10^3/uL MPV (7.5-11.0) fL Sodium (135-145) mmol/L Potassium (3.5-5.1) mmol/L Chloride (98-107) mmol/L Carbon Dioxide (22-30) mmol/L Anion Gap (5-15) MEQ/L BUN (9-20) mg/dL Creatinine (0.66-1.25) mg/dL Estimated GFR ML/MIN Glucose (74-106) mg/dL POC Glucometer 114 H 76 124 H (50 to 500) mg/dL Calcium (8.4-10.2) mg/dL Total Bilirubin (0.2-1.3) mg/dL AST (17-59) U/L ALT (0-50) U/L Alkaline Phosphatase (38-126) U/L Serum Total Protein (6.3-8.2) g/dL Albumin (3.5-5.0) g/dL 08/23/23 08/23/23 08/23/23 Range/Units 04:08 05:16 07:02 WBC (4.0-10.5) x10^3/uL RBC (4.1-5.6) x10^6/uL Hgb (12.5-18.0) g/dL Hct (42-50) % MCV (78-100) fL MCH (26-32) pg MCHC (32-36) g/dL RDW (11.5-14.0) % Plt Count (150-450) x10^3/uL MPV (7.5-11.0) fL Sodium 139 (135-145) mmol/L Potassium 4.6 (3.5-5.1) mmol/L Chloride 105 (98-107) mmol/L Carbon Dioxide 30 (22-30) mmol/L Anion Gap 8.3 (5-15) MEQ/L BUN 23 H (9-20) mg/dL Creatinine 0.85 (0.66-1.25) mg/dL Estimated GFR 85.2 ML/MIN Glucose 146 H (74-106) mg/dL POC Glucometer 145 H 129 H (50 to 500) mg/dL Calcium 9.0 (8.4-10.2) mg/dL Total Bilirubin 0.80 (0.2-1.3) mg/dL AST 35 (17-59) U/L ALT 17 (0-50) U/L Alkaline Phosphatase 66 (38-126) U/L Serum Total Protein 6.2 L (6.3-8.2) g/dL Albumin 3.4 L (3.5-5.0) g/dL Radiology Exams: Radiology Procedures Category Date Time Status CHEST 1 VIEW (PORTABLE) Urgent Exams 08/23/23 10:52 Ordered FEMUR Routine Exams 08/23/23 10:39 Ordered VENOUS BILATERAL EXTREMITY [US] Stat Exams 08/22/23 18:54 Completed Multi-Disciplinary Progress Notes: Multi-Disciplinary Progress Notes 08/23/23 09:30 Occupational Therapy Note by Sherie Young, PT, CALLED THIS OT REGARDING [place] AND REPORTS THAT HE LEFT HIS ADAPTIVE EQUIPMENT/UTENSILS AT HOME. HE IS A PREVIOUS STROKE AND HAS SEVERE ARTHRITIS IN HIS HANDS. OT PROVIDED [employer] BUILT UP HANDLES (2 PIECES) FOR HIM TO UTILIZE WITH UTENSILS AT MEALS DURING HIS HOSPITAL STAY. HE WAS ABLE TO ICU SPECIALIST THE HANDLES APPROPRIATELY, AND OT RECOMMENDED TAPING A WASH CLOTH AROUND IT IF THEY NEED IT TO BE BIGGER. NURSING STAFF IN ROOM DURING EDUCATION AND TO CALL IF OTHER ADAPTIVE EQUIPMENT NEEDED. SCREEN ONLY* Initialized on 08/23/23 09:30 - END OF NOTE Assessment/Plan (1) Cellulitis of both lower extremities Current Visit: Yes Status: Acute Assessment & Plan: - Clindamycin IV started - probiotics started - venous duplex BLLE negative for DVT Code(s): L03.115 - CELLULITIS OF RIGHT LOWER LIMB; L03.116 - CELLULITIS OF LEFT LOWER LIMB (2) Weakness Current Visit: Yes Status: Acute Assessment & Plan: - PT eval and treat - pt wanting skilled nursing placement as was living in assisted living - case management working on placement - pending - Labs reviewed Code(s): R53.1 - WEAKNESS (3) Left leg pain Current Visit: Yes Status: Acute Assessment & Plan: - pain with standing - PT eval - XR left femur - 2 view left femur demonstrates osteopenia, moderate scattered vascular calcifications, and knee vascular clips. No other bony, articular, or soft tissue abnormalities. 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 Diabetes mellitus complication status: with circulatory complication Assessment & Plan: - accuchecks ac/hs - low dose s/s started today as pt is eating well - 07/10/23 A1C 6.23- controlled Code(s): E11.9 - TYPE 2 DIABETES MELLITUS WITHOUT COMPLICATIONS (6) Essential (primary) hypertension Current Visit: Yes Status: Chronic Assessment & Plan: - controlled - continue home BP meds Code(s): I10 - ESSENTIAL (PRIMARY) HYPERTENSION (7) Hypoglycemia Current Visit: Yes Status: Resolved Assessment & Plan: - resolved since admission - Pt admits he took insulin yesterday and did not eat - eating well today and glucose improved Code(s): E16.2 - HYPOGLYCEMIA, UNSPECIFIED (8) Lymphedema Current Visit: Yes Status: Chronic Assessment & Plan: - appears chronic - YOLANDA, SCD's, elevate legs Code(s): I89.0 - LYMPHEDEMA, NOT ELSEWHERE CLASSIFIED (9) Sciatica Current Visit: Yes Status: Chronic Assessment & Plan: - Started gabapentin 100MG tid- consider increasing if does not cause sedation - PT eval and treat Code(s): M54.30 - SCIATICA, UNSPECIFIED SIDE (10) Obesity (BMI 30-39.9) Current Visit: Yes Status: Chronic Assessment & Plan: - advised ADA diet and exercise control VTE: Lovenox PPI: Protonix Next of KIN: Marian Rich, D/C plan: 1-2 days Code status: Full Code(s): E66.9 - OBESITY, UNSPECIFIED
[2023-08-23] MEDS: Flonase NASAL NS SCH (11:07)
[2023-08-23] MEDS: ZOLOFT 50 MG TABLET PO SCH (11:08)
[2023-08-23] MEDS: Ditropan XL 5 MG PO SCH (11:08)
[2023-08-23] MEDS: Protonix 40MG Tablet PO SCH (11:08)
[2023-08-23] MEDS: VITAMIN D PO SCH (11:08)
[2023-08-23] MEDS: Lopressor 25MG Tab PO SCH (11:09)
[2023-08-23] MEDS: CLARITIN 10 MG PO SCH (11:09)
[2023-08-23] MEDS: ENOXAPARIN SODIUM SQ SCH (11:10)
[2023-08-23] MEDS: Proscar 5 MG PO SCH (11:10)
[2023-08-23] MEDS: ECOTRIN 81 MG PO SCH (11:10)
[2023-08-23] MEDS: Acidophilus TABLET PO SCH (11:16)
--- NOTE | 2023-08-23 11:21 | XRAY ---
Indication: Pain. Comparison: None 2 view left femur demonstrates osteopenia, moderate scattered vascular calcifications, and knee vascular clips. No other bony, articular, or soft tissue abnormalities.
--- NOTE | 2023-08-23 11:23 | XRAY ---
Indication: correction placement. Comparison: November 25, 2015 Portable chest inflated and remains clear with incidental tiny right apical calcified granuloma. 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 Bony thorax intact again with osteopenia, mild degenerative changes, and old right 7/8 rib fractures. Imperson: Continued nonacute chest with chronic features.
[2023-08-23] MEDS ORDERED: HUMALOG SQ PRN (12:17)
[2023-08-23] MEDS: CLINDAMYCIN-D5W 600 MG/50 ML*** 600 MG/50 ML BAG IV SCH (14:36)
[2023-08-23] MEDS: Neurontin PO SCH (14:36)
[2023-08-23] MEDS: TYLENOL 325 MG PO PRN (16:48)
[2023-08-23] MEDS: ZOCOR 20MG PO SCH (21:11)
[2023-08-23] MEDS ORDERED: ROSUVASTATIN CALCIUM 40 MG PO SCH (22:00)
[2023-08-24 04:55] LABS: Hematocrit 34.9 % (42-50); Hemoglobin 11.3 g/dL (12.5-18.0); Mean Cell Volume 87.7 fL (78-100); Mean Corpuscular Hemoglobin 28.4 pg (26-32); Mean Corpuscular Hgb Concent. 32.4 g/dL (32-36); Mean Platelet Volume 9.3 fL (7.5-11.0); Platelet Count 154 x10^3/uL (150-450); Red Blood Count 3.98 x10^6/uL (4.1-5.6); Red Cell Distribution Width 13.9 % (11.5-14.0); White Blood Count 5.9 x10^3/uL (4.0-10.5)
[2023-08-24 05:40] LABS: ALBUMIN 3.3 g/dL (3.5-5.0); ANION GAP 8.1 MEQ/L (5-15); BILIRUBIN,TOTAL 1.1 mg/dL (0.2-1.3); Calcium 8.7 mg/dL (8.4-10.2); Creatinine 1 0.82 mg/dL (0.66-1.25); EST GLOMERULAR FILTRATION RATE 86.1 ML/MIN; Potassium 4.3 mmol/L (3.5-5.1); Total Protein 6.3 g/dL (6.3-8.2)
[2023-08-24 07:24] VITALS: RESP 16
[2023-08-24 11:36] VITALS: BP 127/69; PULSE 56; TEMP 96.4; O2SAT 90
--- NOTE | 2023-08-24 11:58 | PCM.DS ---
Discharge Summary Date of Admission: 08/22/23 22:54 Date of Discharge: 08/24/23 Admitting Physician: AGNES ROSA MD Consults: Consults on Case 08/23/23 10:37 Consult Podiatry ROUTINE Primary Care Provider: KELLEY DILLARD Allergies Allergies Penicillins Allergy (Mild, Verified 08/22/23 23:53) [facility] - Hospital Course Hospital Course: 08/23/23 Mr. RICH is a 87 year old male with a past medical history significant for hypertension, diabetes, OA, chronic sciatic nerve pain, and chronic LE edema. Lives at an ECF/ assisted living. Plan is for pt to be transferred to a skilled nursing at d/c. He came to the hospital on 08/22/23 from his facility with complaints of BLLE swelling and was found to have a low blood sugar of 37 on lab work. He reports that he gives his own insulin dose but got caught up and forgot to eat something, as well as not having anything good to eat from the facility. He was given one amp d50 with initial improvement to 115, but it then dropped again to 74. He was given Lasix 20mg for his LE edema and recommended for admission. No fever/chills. No chest pain or shortness of breath. His family tends to bring him food/drinks to maintain his appetite/blood sugars. He states that he normally carries glucose pills with him but did not have them last night. Today he c/o Left femur pain and was unable to get up with PT. No concerning findings seen on XR. He is also c/o sciatic pain and gabapentin started. Glucose has been stable since admission as pt has been eating well. He has a lesion on right foot 2nd toe and it may be necrotic. Will have podiatry evaluate. He also appears to have cellulitis of BLLE, Clindamycin started. BLLE venous duplex negative for DVT. Will start TEDS, SCDS, and leg elevation to reduce edema. Pt denies CP, SOB, abd. pain, N/V/D. 08/24/23 Pt resting in bed. He was evaluated by podiatry yesterday and Unna boots applied. Discussed with podiatry about pt's right foot 2nd toe. He feels no intervention is needed at this time. Will contnue Op antibiotics for cellulitis of BLLE. Gabapentin started yesterday for sciatic pain and he feels this is helpful and not having any pain today. Discussed XR results of left femur. plan is skilled nursing placement today. Will d/c with s/s humalog and d/c all other diabetic meds to prevent further hypoglycemia. He denies any further concerns at this time. - Vitals & Intake/Output Vital Signs: Vital Signs Temperature 96.4 F 08/24/23 11:35 Pulse Rate 56 L 08/24/23 11:35 Respiratory Rate 16 08/24/23 11:35 Blood Pressure 127/69 08/24/23 11:35 O2 Sat by Pulse Oximetry 90 L 08/24/23 11:35 Intake & Output: Intake & Output 08/21/23 08/22/23 08/23/23 08/24/23 11:59 11:59 11:59 11:59 Intake Total 120 760 Output Total 450 500 Balance -330 260 Weight 104.326 kg - Lab Result Diagrams: 08/24/23 04:17 08/24/23 04:17 Lab Results-Last 24 Hrs: Lab Results-Last 24 Hours 08/23/23 08/23/23 08/24/23 Range/Units 16:40 22:19 04:17 WBC 5.9 (4.0-10.5) x10^3/uL RBC 3.98 L (4.1-5.6) x10^6/uL Hgb 11.3 L (12.5-18.0) g/dL Hct 34.9 L (42-50) % MCV 87.7 (78-100) fL MCH 28.4 (26-32) pg MCHC 32.4 (32-36) g/dL RDW 13.9 (11.5-14.0) % Plt Count 154 (150-450) x10^3/uL MPV 9.3 (7.5-11.0) fL Sodium (135-145) mmol/L Potassium (3.5-5.1) mmol/L Chloride (98-107) mmol/L Carbon Dioxide (22-30) mmol/L Anion Gap (5-15) MEQ/L BUN (9-20) mg/dL Creatinine (0.66-1.25) mg/dL Estimated GFR ML/MIN Glucose (74-106) mg/dL POC Glucometer 131 H 107 H (74 to 106) mg/dL Calcium (8.4-10.2) mg/dL Total Bilirubin (0.2-1.3) mg/dL AST (17-59) U/L ALT (0-50) U/L Alkaline Phosphatase (38-126) U/L Serum Total Protein (6.3-8.2) g/dL Albumin (3.5-5.0) g/dL 08/24/23 08/24/23 08/24/23 Range/Units 04:17 07:11 11:25 WBC (4.0-10.5) x10^3/uL RBC (4.1-5.6) x10^6/uL Hgb (12.5-18.0) g/dL Hct (42-50) % MCV (78-100) fL MCH (26-32) pg MCHC (32-36) g/dL RDW (11.5-14.0) % Plt Count (150-450) x10^3/uL MPV (7.5-11.0) fL Sodium 139 (135-145) mmol/L Potassium 4.3 (3.5-5.1) mmol/L Chloride 105 (98-107) mmol/L Carbon Dioxide 30 (22-30) mmol/L Anion Gap 8.1 (5-15) MEQ/L BUN 20 (9-20) mg/dL Creatinine 0.82 (0.66-1.25) mg/dL Estimated GFR 86.1 ML/MIN Glucose 111 H (74-106) mg/dL POC Glucometer 122 H 193 H (74 to 106) mg/dL Calcium 8.7 (8.4-10.2) mg/dL Total Bilirubin 1.10 (0.2-1.3) mg/dL AST 33 (17-59) U/L ALT 16 (0-50) U/L Alkaline Phosphatase 70 (38-126) U/L Serum Total Protein 6.3 (6.3-8.2) g/dL Albumin 3.3 L (3.5-5.0) g/dL Micro Results-Entire Visit: Accuchecks Date 08/24/23 Date 08/24/23 Date 08/23/23 - Radiology Exams Ordered Rad Exams-Entire Visit: Radiology Procedures Category Date Time Status CHEST 1 VIEW (PORTABLE) Urgent Exams 08/23/23 10:52 Completed FEMUR Routine Exams 08/23/23 10:39 Completed VENOUS BILATERAL EXTREMITY [US] Stat Exams 08/22/23 18:54 Completed - Procedures and Test Procedures and Tests throughout Hospitalization: Therapy Orders & Screens 08/23/23 00:46 PT Eval & Treat (MD Order) ONCE Reason for Eval:: weakness, immobility, previous CVA, chronic lymphedema Diagnosis: hypoglycemia Discharge Exam General Appearance: no apparent distress, alert, obese Neurologic Exam: alert, oriented x 3, cooperative, normal mood/affect, nml cerebellar function, sensation nml, No motor deficits Eye Exam: PERRL, EOMI, eyes nml inspection Ears, Nose, Throat Exam: normal ENT inspection, pharynx normal, moist mucous membranes Neck Exam: normal inspection, non-tender, supple, full range of motion Respiratory Exam: normal breath sounds, lungs clear, No respiratory distress Cardiovascular Exam: regular rate/rhythm, normal heart sounds Gastrointestinal/Abdomen Exam: soft, No tenderness, No mass Male Genitalia Exam: deferred Rectal Exam: deferred Back Exam: normal inspection, normal range of motion, No CVA tenderness, No vertebral tenderness Extremity Exam: normal inspection, normal range of motion Skin Exam: normal color, warm, dry, other (redness of [place] area from incontinence- barrier cream applied by nurses) Final Diagnosis/Problem List - Final Discharge Diagnosis/Problem (1) Cellulitis of both lower extremities Current Visit: Yes Status: Acute Code(s): L03.115 - CELLULITIS OF RIGHT LOWER LIMB; L03.116 - CELLULITIS OF LEFT LOWER LIMB (2) Weakness Current Visit: Yes Status: Acute Code(s): R53.1 - WEAKNESS (3) Left leg pain Current Visit: Yes Status: Acute Code(s): M79.605 - PAIN IN LEFT LEG (4) Toe abrasion Current Visit: Yes Status: Acute Code(s): S90.416A - ABRASION, UNSPECIFIED LESSER TOE(S), INITIAL ENCOUNTER (5) Diabetes Current Visit: Yes Status: Chronic Code(s): E11.9 - TYPE 2 DIABETES MELLITUS WITHOUT COMPLICATIONS (6) Essential (primary) hypertension Current Visit: Yes Status: Chronic Code(s): I10 - ESSENTIAL (PRIMARY) HYPERTENSION (7) Hypoglycemia Current Visit: Yes Status: Resolved Code(s): E16.2 - HYPOGLYCEMIA, UNSPECIFIED (8) Lymphedema Current Visit: Yes Status: Chronic Code(s): I89.0 - LYMPHEDEMA, NOT ELSEWHERE CLASSIFIED (9) Sciatica Current Visit: Yes Status: Chronic Code(s): M54.30 - SCIATICA, UNSPECIFIED SIDE (10) Obesity (BMI 30-39.9) Current Visit: Yes Status: Chronic Assessment & Plan: (1) Cellulitis of both lower extremities Current Visit: Yes Status: Acute Assessment & Plan: - Clindamycin IV started - probiotics started - venous duplex BLLE negative for DVT - Unna boots applied per podiatry Code(s): L03.115 - CELLULITIS OF RIGHT LOWER LIMB; L03.116 - CELLULITIS OF LEFT LOWER LIMB (2) Weakness Current Visit: Yes Status: Acute Assessment & Plan: - PT eval and treat - pt wanting skilled nursing placement as was living in assisted living - case management working on placement - UA pending- pt incontinent so difficult to obtain - Labs reviewed Code(s): R53.1 - WEAKNESS (3) Left leg pain Current Visit: Yes Status: Acute Assessment & Plan: - pain with standing - PT eval - XR left femur - 2 view left femur demonstrates osteopenia, moderate scattered vascular calcifications, and knee vascular clips. No other bony, articular, or soft tissue abnormalities. 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: with fdc use Diabetes mellitus complication status: with circulatory complication Assessment & Plan: - accuchecks ac/hs - low dose s/s started today as pt is eating well - 07/10/23 A1C 6.23- controlled Code(s): E11.9 - TYPE 2 DIABETES MELLITUS WITHOUT COMPLICATIONS (6) Essential (primary) hypertension Current Visit: Yes Status: Chronic Assessment & Plan: - controlled - continue home BP meds Code(s): I10 - ESSENTIAL (PRIMARY) HYPERTENSION (7) Hypoglycemia Current Visit: Yes Status: Resolved Assessment & Plan: - resolved since admission - Pt admits he took insulin yesterday and did not eat - eating well today and glucose improved / - no further hypoglycemic episodes since admission - will d/c with s/s insulin Code(s): E16.2 - HYPOGLYCEMIA, UNSPECIFIED (8) Lymphedema Current Visit: Yes Status: Chronic Assessment & Plan: - appears chronic - elevate legs Code(s): I89.0 - LYMPHEDEMA, NOT ELSEWHERE CLASSIFIED (9) Sciatica Current Visit: Yes Status: Chronic Assessment & Plan: - Started gabapentin 100MG tid- consider increasing if does not cause sedation - PT eval and treat / - pain improved with 100mg TID dosing- not causing sedation Code(s): M54.30 - SCIATICA, UNSPECIFIED SIDE (10) Obesity (BMI 30-39.9) Current Visit: Yes Status: Chronic Assessment & Plan: - advised ADA diet and exercise control Code(s): E66.9 - OBESITY, UNSPECIFIED - Discharge Discharge Date: 08/24/23 Disposition: DC TO ANY "OTHER" [facility] Condition: Stable Prescriptions: New Gabapentin [Neurontin ] 100 mg PO TID 30 Days #90 cap Continue Sertraline HCl 50 mg [Zoloft 50 mg Tablet] 50 mg PO DAILY Metoprolol Tartrate 25 mg [Lopressor 25MG Tab] 25 mg PO BID Rosuvastatin Calcium [Crestor] 20 mg PO HS Polyethylene Glycol [Polyox Wsr-301] 17 gm PO DAILY PRN PRN Reason: Constipation Acetaminophen 325 mg [Tylenol 325 mg] 650 mg PO Q6H PRN PRN PRN Reason: Pain Hydrocortisone 2.5% 30 gm [Anusol-Hc 2.5% Cream 30 gm] 1 gm TOP QID PRN Diclofenac Sodium [Diclofono] 2 gm TP QID Tolterodine Tartrate [Tolterodine Tartrate ER] 2 mg PO BID Aspirin EC 81 mg [Ecotrin 81 mg] 81 mg PO DAILY Finasteride 5 mg [Proscar 5 MG] 5 mg PO DAILY Prevagen 1 tab PO DAILY Loratadine 10 mg [Claritin 10 mg] 10 mg PO DAILY Fluticasone Propionate [Flonase NASAL] 1 spray NS BID Cholecalciferol (Vitamin D3) [Vitamin D] 1 tab PO DAILY Discontinued Insulin Glargine [Lantus Insulin] 20 unit SQ DAILY Insulin Aspart [NovoLOG Insulin] 10 unit SQ AC Liraglutide [Victoza 2-Rancho] 1.8 mg SQ DAILY Follow up with: KELLEY DILLARD MD [Primary Care Provider] -
--- NOTE | 2023-08-26 19:20 | PCM.CONS ---
Podiatry HPI - Consult Reason for Consult: 2nd toe ulceration right foot, venous insufficency bilateral lower extremity Consulting Provider: CHARBEL LEE DPM - HPI History of Present Illness: Roger is a very plesant 87 year old male who came into the er via ambulance last evening with c/o swelling; 2+ pitting edema to BLE, greater in the RLE; BLE cool to the touch; weak pedal pulses lidia; skin pale, dry, warm; no respiratory distress present; vitals wnl patient is complaining of bilateral leg pain and his sciatica acting up. Patient has a new ulceration over the dorsal aspect of the 2nd digit of the right foot. He currently denies any consitutional symptoms of infeciton. He denies any other pedal complaints at this time. Medications & Allergies Home Medications: Home Medication List Metoprolol Tartrate 25 mg [Lopressor 25MG Tab] 25 mg PO BID 06/19/16 [History Confirmed 08/22/23] Polyethylene Glycol [Polyox Wsr-301] 17 gm PO DAILY PRN 06/19/16 [History Confirmed 08/22/23] Rosuvastatin Calcium [Crestor] 20 mg PO HS 06/19/16 [History Confirmed 08/22/23] Sertraline HCl 50 mg [Zoloft 50 mg Tablet] 50 mg PO DAILY 06/19/16 [History Confirmed 08/22/23] Acetaminophen 325 mg [Tylenol 325 mg] 650 mg PO Q6H PRN PRN 03/28/23 [History Confirmed 08/22/23] Aspirin EC 81 mg [Ecotrin 81 mg] 81 mg PO DAILY 03/28/23 [History Confirmed 08/22/23] Diclofenac Sodium [Diclofono] 2 gm TP QID 03/28/23 [History Confirmed 08/22/23] Finasteride 5 mg [Proscar 5 MG] 5 mg PO DAILY 03/28/23 [History Confirmed 08/22/23] Hydrocortisone 2.5% 30 gm [Anusol-Hc 2.5% Cream 30 gm] 1 gm TOP QID PRN 03/28/23 [History Confirmed 08/22/23] Prevagen 1 tab PO DAILY 03/28/23 [History Confirmed 08/22/23] Tolterodine Tartrate [Tolterodine Tartrate ER] 2 mg PO BID 03/28/23 [History Confirmed 08/22/23] Cholecalciferol (Vitamin D3) [Vitamin D] 1 tab PO DAILY 08/22/23 [History Confirmed 08/22/23] Fluticasone Propionate [Flonase NASAL] 1 spray NS BID 08/22/23 [History Confirmed 08/22/23] Loratadine 10 mg [Claritin 10 mg] 10 mg PO DAILY 08/22/23 [History Confirmed 08/22/23] Doxycycline Hyclate 100 mg [Vibramycin 100 MG] 100 mg PO BID 7 Days #14 tab 08/24/23 [Rx] Gabapentin [Neurontin ] 100 mg PO TID 30 Days #90 cap 08/24/23 [Rx] Insulin Lispro [Humalog] 100 unit SQ ACHS 30 Days #100 units 08/24/23 [Rx] Allergies/Adverse Reactions: Allergies Allergy/AdvReac Type Severity Reaction Status Date / Time Penicillins Allergy Mild Rash Verified 08/22/23 23:53 - Past Medical History Past Medical History: Yes Neurological History: Stroke ENT History: No Pertinent History Cardiac History: Congestive Heart Failure, High Cholesterol, Hypertension, Peripheral Vascular Disease, Other Respiratory History: No Pertinent History Endocrine Medical History: Diabetes Type II Musculoskelatal History: Arthritis GI Medical History: Gallbladder Disease History: No Pertinent History Pyscho-Social History: No Pertinent History Male Reproductive Disorders: No Pertinent History - Past Surgical History Past Surgical History: Yes Neuro Surgical History: No Pertinent History Cardiac History: CABG Respiratory Surgery: No Pertinent History GI Surgical History: Cholecystectomy Genitourinary Surgical Hx: No Pertinent History Musculskeletal Surgical Hx: No Pertinent History Male Surgical History: No Pertinent History Other Surgical History: 4 vessel cabg - Social History Smoking Status: Never smoker Exposure to second hand smoke: No Alcohol: None Drug Use: none - Social Determinants of Health Will the patient participate in the screening: Yes Do you worry about a steady place to live?: No Do you have any problems with any of the following?: No known problems In the past 12 months,have you had to go without utilities?: No Have you or anyone in your house had to go without enough: No Transportation Issues: No Has anyone in your support network made you feel unsafe?: No Does the patient want assistance with any of the above?: No Physical Exam - Vascular Peripheral Pulses: Posterior tibialis: 1+, Dorsalis-Pedis: 0 Capillary Refill Time: < 3 seconds Hair Growth: Symmetrical and Bilateral Varicosities: Positive Edema: Pitting Edema Degree: 3+ Skin: Supple, not atrophic Skin Temperature: Warm to touch - Narrative Narrative Physical Exam: Podiatry Physical Exam Assessment/Plan (1) Back pain Status: Acute Code(s): M54.9 - DORSALGIA, UNSPECIFIED (2) Cellulitis of both lower extremities Status: Acute Assessment & Plan: Initial patient examination and evaluation Venous dopplers preformed demonstrating no occlusive deep vein thrombosis to the bialteral lower extremity Concern over ulceration to the dorsal aspect of the 2nd digit on the right foot due to recent fracture. Ulcer indeterminate time line at this time in relation to fracture At this time debridement of ulcer reveals healthy granulation tissue with healthy bleeding noted. Wound post debridement measures 0.9 x 0.5 x 0.1 no evidence of full thickness ulceration to level of fracture Venous insufficiency to the bilateral lower extremity At this time bilateral unna boots applied in order to prevent ulceration and reduce overload. Patient scheduled MWF for dressing changes Will follow outpatient once d/c. Code(s): L03.115 - CELLULITIS OF RIGHT LOWER LIMB; L03.116 - CELLULITIS OF LEFT LOWER LIMB (3) Left leg pain Status: Acute Code(s): M79.605 - PAIN IN LEFT LEG (4) Sciatica, right side Status: Acute Code(s): M54.31 - SCIATICA, RIGHT SIDE (5) Toe abrasion Status: Acute Code(s): S90.416A - ABRASION, UNSPECIFIED LESSER TOE(S), INITIAL ENCOUNTER (6) Diabetes Status: Chronic Qualifiers: Diabetes mellitus type: type 2 Diabetes mellitus jail insulin use: with jail use Diabetes mellitus complication status: with circulatory complication Code(s): E11.9 - TYPE 2 DIABETES MELLITUS WITHOUT COMPLICATIONS (7) Obesity (BMI 30-39.9) Status: Chronic Code(s): E66.9 - OBESITY, UNSPECIFIED
== END 2023-08-24 15:14 ==
LOC: ED 17:11 → MED SURG 22:54
PROVIDERS: ADMIT Internal Medicine Nephrology; ATTEND Internal Medicine Nephrology
DX: L03.115 Cellulitis of right lower limb (principal); L03.116 Cellulitis of left lower limb; S90.414A Abrasion, right lesser toe(s), initial encounter; E11.649 Type 2 diabetes mellitus with hypoglycemia without coma; R53.1 Weakness; M79.605 Pain in left leg; I89.0 Lymphedema, not elsewhere classified; M54.30 Sciatica, unspecified side; E66.9 Obesity, unspecified; I11.0 Hypertensive heart disease with heart failure; I50.9 Heart failure, unspecified; E78.5 Hyperlipidemia, unspecified; Z95.0 Presence of cardiac pacemaker; Z79.899 Other long term (current) drug therapy
CPT/HCPCS: 11042; 29580; 36000; 36415; 71045; 73552; 80053; 82947; 85027; 93970; 96374; 96375; 97161; 97530; 99222; 99285; 99291; G0378; Q3014; J1650; J1940; J2270; A9270-GY